=== PATIENT | male | born 1940 | race Caucasian/White ===

== ENCOUNTER → 2017-01-21 | Outpatient (CLI) | payer MEDICARE ==
[~2017-01-21] MED LIST: ACETAMINOPHEN PO; BENICAR PO; LEVAQUIN750 MG PO; TOPROL XL PO
[2017-01-21 08:17] LABS: CHOLESTEROL 154 mg/dL (0-200); HDL CHOLESTEROL 39 mg/dL (29-75); LDL CHOLESTEROL 99 mg/dL (-130); LDL/HDL RATIO 3 RATIO (0-4); TRIGLYCERIDES 78 mg/dL (10-160)
== END | disposition home or self-care (01) ==
LOC: CLAB 06:52
PROVIDERS: Internal Medicine Cardiovascular Disease
DX: R09.89 Other specified symptoms and signs involving the circulatory and respiratory systems (principal)
CPT/HCPCS: 36415; 80061